=== PATIENT | female | born 1940 | race Caucasian/White ===

== ENCOUNTER → 2021-12-28 | Outpatient (CLI) | payer MEDICARE, BC ==
[2021-12-28 13:04] LABS: Basophils # (A) 0.1 k/uL (0-0.2); Basophils % (A) 1 %; Eosinophils # (A) 0.2 k/uL (0-0.7); Eosinophils % (A) 3 %; HCT 42.4 % (34.0-46.0); HGB 13.9 gm/dL (11.4-16.0); Lymphocytes # (A) 0.8 k/uL (1.0-4.8); Lymphocytes % (A) 9 %; MCHC 32.8 g/dL (31.0-37.0); MCV 88.6 fL (80.0-100.0); Mean Platelet Volume 7.2; Monocytes # (A) 0.5 k/uL (0-1.0); Monocytes % (A) 6 %; Neutrophils # (A) 6.4 k/uL (1.3-7.7); Neutrophils % (A) 80 %; Platelet Count 305 k/uL (150-450); RBC 4.78 m/uL (3.80-5.40); RDW 13.1 % (11.5-15.5)
[2021-12-28 13:19] LABS: ALT 37 U/L (4-34); AST 37 U/L (14-36); African American GFR (CKD) >90 (>60 ml/min/1.73 sqM); Albumin 3.8 g/dL (3.5-5.0); Albumin/Globulin Ratio 1.7; Alkaline Phosphatase 80 U/L (38-126); Anion Gap 6 mmol/L; Blood Urea Nitrogen 9 mg/dL (7-17); Calcium 8.9 mg/dL (8.4-10.2); Carbon Dioxide 34 mmol/L (22-30); Chloride 94 mmol/L (98-107); Globulin 2.3 g/dL; Glucose 106 mg/dL (74-99); Non-African American GFR(CKD) 80 (>60 ml/min/1.73 sqM); Potassium 3.6 mmol/L (3.5-5.1); Sodium 134 mmol/L (137-145); Total Bilirubin 0.3 mg/dL (0.2-1.3); Total Protein 6.1 g/dL (6.3-8.2)
--- NOTE | 2021-12-28 23:06 | CT ---
EXAMINATION TYPE: CT ChestAbdPelvis w con DATE OF EXAM: 12/28/2021 COMPARISON: None available HISTORY: Colorectal cancer CT DLP: 1049.8 mGycm Automated exposure control for dose reduction was used. CONTRAST: CT scan of the chest, abdomen and pelvis is performed with Oral Contrast and with IV Contrast, patien t injected with 100 mL of Isovue 300. FINDINGS: LUNGS: Wedge-shaped thick consolidation/soft tissue is seen in the right lower lobe measuring 4.5 x 5 .3 cm. This could represent pneumonia however metastasis cannot be excluded. Other similar smaller we dge-shaped areas seen in the lower lobes and the medial aspect of the right upper lobe. 4 mm nodule i s seen in the right lower lobe superior segment. 3 mm nodule is seen at the lateral aspect of the rig ht upper lobe. Suspected 3 mm calcified granuloma in the left upper lobe. Patent trachea and main bro nchi. Bilateral small pleural effusions. MEDIASTINUM: Enlarged subcarinal lymph node measuring 15 mm. A pretracheal lymph node measures 12 mm. Scattered smaller partially calcified hilar and mediastinal lymph nodes. No axillary lymphadenopathy . Cardiomegaly. The pulmonary trunk measures 3.7 cm suggestive of pulmonary hypertension. OTHER: No gross aggressive bone lesion. Degenerative changes of the thoracic spine. LIVER/GB: Previous cholecystectomy. 15 mm hypodensity seen at the inferior aspect of the right hepati c lobe, possibly representing focal fat infiltration. Recommend correlation with previous unavailable CT scans. No other definite hepatic focal lesion. PANCREAS: No significant abnormality is seen. SPLEEN: Suspected accessory spleen is seen along the posterior aspect of the spleen. ADRENALS: No significant abnormality is seen. KIDNEYS: No significant abnormality is seen. BOWEL: Left lower quadrant colostomy. Large parastomal hernia containing multiple small bowel loops. Grossly unremarkable stomach and duodenum. No evidence of small bowel obstruction. Significant fecal loading of the colon. REPRODUCTIVE ORGANS: Previous hysterectomy. No gross adnexal mass. LYMPH NODES: No greater than 1 cm abdominal or pelvic lymph nodes are appreciated. OSSEOUS STRUCTURES: No gross aggressive bone lesion. Degenerative changes of the lumbar spine. OTHER: Scattered arterial atherosclerotic calcifications. Lower back subcutaneous fat stranding and m ild soft tissue thickening, nonspecific. No sizable ascites or gross peritoneal nodules. Suspected ad hesions in the parastomal hernia. IMPRESSION: 1. The described pulmonary changes in the thoracic lymphadenopathy could be related to acute inflamma tory/infectious process like pneumonia however underlying metastatic disease cannot be excluded. Jacob mmend clinical correlation and correlation with previous unavailable CT scan. Accordingly, further PE T scan assessment can be considered. 2. 15 mm hypodensity in the right hepatic lobe inferiorly as described above, this could represent fo charli area of fatty infiltration, please correlate with previous unavailable CT scans. 3. Otherwise no evidence of metastatic disease seen in the chest, abdomen or the pelvis. Other findin gs as described above.
== END | disposition home or self-care (01) ==
LOC: RADCTMAIN 12:23
PROVIDERS: ATTEND Internal Medicine Hematology & Oncology
DX: C20 Malignant neoplasm of rectum (principal)
CPT/HCPCS: 80053; 82378; 85025; 71260; 74177; 36415; Q9967 ×2